=== PATIENT | female | born 1940 | race Asian ===

== ENCOUNTER 2017-09-02 13:06 | Inpatient (IN) | payer MEDICARE, OTHER ==
[~2017-09-02] VITALS: Ht 149.9 cm; Wt 49.9 kg
[2017-09-02] MEDS ORDERED: EVISTA60 MG ORAL (13:09)
[2017-09-02] MEDS ORDERED: ZOCOR20 MG ORAL (13:09)
[2017-09-02] MEDS ORDERED: HYZAAR 50-12.51 EACH ORAL (13:09)
[2017-09-02] MEDS ORDERED: XANAX0.25 MG ORAL (13:09)
[2017-09-02] MEDS ORDERED: CYMBALTA60 MG ORAL (13:09)
[2017-09-02] MEDS ORDERED: Sodium Chloride 500ML 500 ML IVPB ONE (13:15)
[2017-09-02 13:54] LABS: BASOPHILS % (AUTO) 0.8 % (0.0-2.0); EOSINOPHILS % (AUTO) 0.9 % (0.0-3.0); HEMATOCRIT 32.2 % (37.0-47.0); HEMOGLOBIN 10.9 G/DL (12.0-16.0); LYMPHOCYTES % (AUTO) 18.5 % (20.0-45.0); MEAN CORPUSCULAR VOLUME 99 FL (80-99); MONOCYTES % (AUTO) 5.7 % (1.0-10.0); PLATELET COUNT 231 K/UL (150-450); RED BLOOD COUNT 3.27 M/UL (4.20-5.40); RED CELL DISTRIBUTION WIDTH 10.9 % (11.6-14.8); WHITE BLOOD COUNT 9.7 K/UL (4.8-10.8)
[2017-09-02 14:33] VITALS: BP 119/60
[2017-09-02 14:38] LABS: ALANINE AMINOTRANSFERASE 14 U/L (12-78); ALBUMIN 2.7 G/DL (3.4-5.0); ALBUMIN/GLOBULIN RATIO 0.9 (1.0-2.7); ALKALINE PHOSPHATASE 28 U/L (46-116); ANION GAP 8 mmol/L (5-15); ASPARTATE AMINO TRANSFERASE 16 U/L (15-37); BILIRUBIN,TOTAL 0.1 MG/DL (0.2-1.0); BLOOD UREA NITROGEN 20 mg/dL (7-18); CALCIUM 7.4 MG/DL (8.5-10.1); CARBON DIOXIDE 24 MMOL/L (21-32); CHLORIDE 109 MMOL/L (98-107); CREATININE 0.9 MG/DL (0.55-1.30); SODIUM 141 MMOL/L (136-145)
[2017-09-02 14:47] LABS: CKMB 1.3 NG/ML (0.0-3.6); CREATINE KINASE 46 U/L (26-308)
--- NOTE | 2017-09-02 15:42 | Emergency Room Report ---
History of Present Illness General Chief Complaint: Dizziness Source: Patient, Medical Record Present Illness HPI The patient is 77-year-old female brought in by EMS after increased dizziness. Patient had been seen at a physician's office. Patient was noted to have become diaphoretic. Patient reported had not been vomiting or having any diarrhea. She prior history of digoxin use as well as diabetes. The patient takes at multiple medications for blood pressure as well as heart condition. The patient been given IV fluids by EMS with improvement in her blood pressure. Patient continued to be somewhat orthostatic after IV fluids Allergies: Coded Allergies: No Known Allergies (Unverified , 09/02/17) Patient History Past Medical History: see triage record Reviewed Nursing Documentation: PMH: Agreed, PSxH: Agreed Nursing Documentation-PMH Past Medical History: No History, Except For Hx Hypertension: Yes - high cholesterol Hx Diabetes: Yes History Of Psychiatric Problem: Yes - Anxiety, depression Review of Systems All Other Systems: negative except mentioned in HPI Physical Exam Vital Signs Date Time Temp Pulse Resp B/P (MAP) Pulse Ox O2 Delivery O2 Flow Rate FiO2 09/02/17 12:53 96.3 88 16 153/77 99 Room Air Sp02 EP Interpretation: reviewed, normal General Appearance: normal inspection, well appearing, no apparent distress, alert Head: atraumatic ENT: normal ENT inspection, hearing grossly normal, normal voice Neck: normal inspection, full range of motion, supple, no bony tend Respiratory: normal inspection, lungs clear, normal breath sounds, no respiratory distress, no retraction, no wheezing Cardiovascular #1: regular rate, rhythm, no edema Gastrointestinal: normal inspection, normal bowel sounds, non tender, soft, no guarding, no hernia Genitourinary: no CVA tenderness Musculoskeletal: normal inspection, normal range of motion, decreased range of motion Neurologic: normal inspection, alert, responsive, speech normal Psychiatric: normal inspection, judgement/insight normal, mood/affect normal Skin: normal inspection, normal color, no rash Medical Decision Making Diagnostic Impression: Primary Impression: Hypotension Additional Impressions: Generalized weakness Thoracic compression fracture Renal cyst ER Course Patient presented for generalized weakness. Differential diagnosis included was not limited to anemia, urinary tract infection, electrolyte abnormality, hypothyroidism, myocardial infarction, myasthenia gravis, dehydration, among others. Because of complexity of patient's case laboratory testing and imaging studies were ordered. I EKG interpreted by me showed normal sinus rhythm with a rate of [address] or T wave changes. Patient noted have a prolonged QT interval and QTC 456 others noted be some digoxin effect. The patient started on IV fluids. She was noted to have some hypokalemia and was given oral potassium. This the CT the abdomen pelvis read by radiology showed severe vertebral collapse at T12 probably old fibroid uterus bilateral renal cysts. Patient was started on IV fluids. The patient has noted to have some episodes which have a release partially explain the medications. The patient will require further monitoring in testing. The patient was discussed with Dr. Evan Downing Labs Test 09/02/17 12:00 09/02/17 13:08 White Blood Count 9.7 K/UL (4.8-10.8) Red Blood Count 3.27 M/UL (4.20-5.40) Hemoglobin 10.9 G/DL (12.0-16.0) Hematocrit 32.2 % (37.0-47.0) Mean Corpuscular Volume 99 FL (80-99) Mean Corpuscular Hemoglobin 33.5 PG (27.0-31.0) Mean Corpuscular Hemoglobin Concent 33.9 G/DL (32.0-36.0) Red Cell Distribution Width 10.9 % (11.6-14.8) Platelet Count 231 K/UL (150-450) Mean Platelet Volume 6.4 FL (6.5-10.1) Neutrophils (%) (Auto) 74.0 % (45.0-75.0) Lymphocytes (%) (Auto) 18.5 % (20.0-45.0) Monocytes (%) (Auto) 5.7 % (1.0-10.0) Eosinophils (%) (Auto) 0.9 % (0.0-3.0) Basophils (%) (Auto) 0.8 % (0.0-2.0) Prothrombin Time 10.4 SEC (9.30-11.50) Prothromb Time International Ratio 1.0 (0.9-1.1) Activated Partial Thromboplast Time 24 SEC (23-33) Sodium Level 141 MMOL/L (136-145) Potassium Level 3.0 MMOL/L (3.5-5.1) Chloride Level 109 MMOL/L (98-107) Carbon Dioxide Level 24 MMOL/L (21-32) Anion Gap 8 mmol/L (5-15) Blood Urea Nitrogen 20 mg/dL (7-18) Creatinine 0.9 MG/DL (0.55-1.30) Estimat Glomerular Filtration Rate mL/min (>60) Glucose Level 164 MG/DL (74-106) Calcium Level 7.4 MG/DL (8.5-10.1) Total Bilirubin 0.1 MG/DL (0.2-1.0) Aspartate Amino Transf (AST/SGOT) 16 U/L (15-37) Alanine Aminotransferase (ALT/SGPT) 14 U/L (12-78) Alkaline Phosphatase 28 U/L (46-116) Total Creatine Kinase 46 U/L (26-308) Creatine Kinase MB 1.3 NG/ML (0.0-3.6) Creatine Kinase MB Relative Index 2.8 Troponin I 0.026 ng/mL (0.000-0.056) Total Protein 5.8 G/DL (6.4-8.2) Albumin 2.7 G/DL (3.4-5.0) Globulin 3.1 g/dL Albumin/Globulin Ratio 0.9 (1.0-2.7) Digoxin Level < 0.2 NG/ML (0.9-2.0) Lactic Acid Level 1.80 mmol/L (0.66-2.22) Last Vital Signs Date Time Temp Pulse Resp B/P (MAP) Pulse Ox O2 Delivery O2 Flow Rate FiO2 09/02/17 14:33 96.3 91 15 119/60 99 Room Air Status: unchanged Disposition: ADMITTED INPATIENT Condition: Serious Referrals: NOT CHOSEN IPA/,REFERRING (PCP) Kamari Potter Sep 02, 2017 15:42
[2017-09-02 16:03] LABS: APPEARANCE,URINE CLEAR; BILIRUBIN, URINE NEGATIVE (NEGATIVE); COLOR,URINE PALE YELLOW; GLUCOSE, URINE (UA) 1+ (NEGATIVE); KETONES,URINE NEGATIVE (NEGATIVE); LEUKOCYTE ESTERASE ,URINE NEGATIVE (NEGATIVE); NITRITE,URINE NEGATIVE (NEGATIVE); PH,URINE 7 (4.5-8.0); PROTEIN,URINE NEGATIVE (NEGATIVE); UROBILINOGEN,URINE NORMAL MG/DL (0.0-1.0)
[2017-09-02 16:19] VITALS: BP 104/80
[2017-09-02 17:28] VITALS: BP 126/71
[2017-09-02] MEDS: D5 1/2NS 1,000 ML IV SCH (18:28)
[2017-09-02 20:00] VITALS: BP 137/75
[2017-09-02] MEDS ORDERED: HydrALAZINE 25mg tab ORAL PRN (20:45)
[2017-09-03] VITALS: BP 142/78
[2017-09-03 04:00] VITALS: BP 135/77
[2017-09-03] MEDS: D5 1/2NS 1,000 ML IV SCH ×2 (04:32→15:42)
[2017-09-03] MEDS: NovoLOG Insulin Flexpen SUBQ SCH ×4 (06:30→20:49)
[2017-09-03 07:09] LABS: EOSINOPHILS % (AUTO) 1.7 % (0.0-3.0); HEMATOCRIT 32.3 % (37.0-47.0); HEMOGLOBIN 10.8 G/DL (12.0-16.0); LYMPHOCYTES % (AUTO) 28.2 % (20.0-45.0); MEAN CORPUSCULAR VOLUME 99 FL (80-99); MONOCYTES % (AUTO) 6.9 % (1.0-10.0); NEUTROPHILS % (AUTO) 62.2 % (45.0-75.0); PLATELET COUNT 234 K/UL (150-450); RED BLOOD COUNT 3.28 M/UL (4.20-5.40); RED CELL DISTRIBUTION WIDTH 10.8 % (11.6-14.8); WHITE BLOOD COUNT 7.7 K/UL (4.8-10.8)
[2017-09-03 07:47] LABS: ANION GAP 7 mmol/L (5-15); BLOOD UREA NITROGEN 18 mg/dL (7-18); CALCIUM 8.9 MG/DL (8.5-10.1); CARBON DIOXIDE 26 MMOL/L (21-32); CHLORIDE 105 MMOL/L (98-107); CREATININE 0.9 MG/DL (0.55-1.30); POTASSIUM 3.8 MMOL/L (3.5-5.1); SODIUM 138 MMOL/L (136-145)
[2017-09-03 08:56] VITALS: BP 151/88
[2017-09-03] MEDS ORDERED: D5 1/2NS 1000ml IV ONE (09:17)
--- NOTE | 2017-09-03 11:08 | Diagnostic Imaging Report ---
Indication: Abdominal pain Technique: CT scan of the abdomen and pelvis was performed from the diaphragms to the symphysis pubis with intravenous contrast material only per specific request of the ordering physician.. 5 mm sections were generated. Axial, coronal, and sagittal images are presented. Dose: Total Dose Length Product - DLP [address] Dose Index - CTDIvol(s) 12.17 mGy. Comparison: None Findings: The liver is normal in size. There is a less than 1 cm low-density lesion in the left lobe of the liver. The gallbladder is normal. The spleen is unremarkable. The pancreas is normal. The stomach is mildly distended with food. Adrenal glands are normal. There is a sharply circumscribed low density mass in the right kidney consistent with a cyst. Another one is noted in the left kidney. Both kidneys appear malrotated. Calcification is noted in the aorta. Retroperitoneum is free of adenopathy. The appendix is small. There is no appendicitis. The bowel is unremarkable. There is a high density mass in the fundus of the uterus measuring 4.7 cm. The uterus is otherwise normal. The bladder is unremarkable. There is a compression fracture of T12. No soft tissue swelling is noted around this. Degenerative changes are noted in the spine. Impression: Compression fracture T12, likely old. There is no soft tissue swelling. Small low-density lesion in the left lobe of the liver. This is too small to characterize but likely represents a small cyst. Ultrasound may be helpful if clinically warranted. 4.7 cm fibroid in the fundus of the uterus. Degenerative change of the spine. No definite evidence of appendicitis. Atherosclerotic change. This agrees with preliminary reading. The CT scanner at [facility] [place] is accredited by the [employer] and the scans are performed using protocols designed to limit radiation exposure to as low as reasonably achievable to attain images of sufficient resolution adequate for diagnostic evaluation.
--- NOTE | 2017-09-03 11:09 | Diagnostic Imaging Report ---
Indication: Shortness of breath Technique: CHEST 1 VIEW Comparison:None Findings: The heart is normal in size. There is calcification of the aorta. The lungs are clear. No pleural fluid. Scoliosis with degenerative changes noted in the thoracic spine. Impression: Scoliosis with degenerative change in the thoracic spine. No acute abnormality.
--- NOTE | 2017-09-03 11:38 | History and Physical ---
History of Present Illness General Date patient seen: Sep 03, 2017 Reason for Hospitalization: Dizziness Present Illness HPI 77 year old female w/ PMHx DM, HTN, HLD and depression who BIBA to the ED w/ near syncope. Per EMS staff pt was hypotensive and diaphoretic on arrival. In the ED pt was tachycardic and hypotensive with positive orthostatic vital sings. She received IVF bolus w/ improvement in BP. Overnight pt was kept on mIVF and encouraged to drink fluids. Today she was able to ambulate w/ PT, however she did c/o some mild dizziness during exertion. Allergies: Coded Allergies: No Known Allergies (Unverified , 09/02/17) Medication History Scheduled Duloxetine Hcl* (Cymbalta*), 60 MG ORAL DAILY, (Reported) Losartan/Hydrochlorothiazide 50-12.5 Tablet* (Hyzaar 50-12.5 Tablet*), 1 TAB ORAL DAILY, (Reported) Raloxifene Hcl* (Evista*), 60 MG ORAL DAILY, (Reported) Simvastatin (Zocor), 20 MG ORAL BEDTIME, (Reported) Scheduled PRN Alprazolam* (Xanax*), 0.25 MG ORAL TID PRN for PRN Agitation/Anxiety, (Reported) Patient History Healthcare decision maker N Resuscitation status Full Code Advanced Directive on File Patient History Narrative DM2 HTN HLD Depression Review of Systems ROS Narrative CONSTITUTIONAL: No weight loss, fever, chills, weakness or fatigue. HEENT: Eyes: No visual loss, blurred vision, double vision or yellow sclerae. Ears, Nose, Throat: No hearing loss, sneezing, congestion, runny nose or sore throat. SKIN: No rash or itching. CARDIOVASCULAR: No chest pain, chest pressure or chest discomfort. No palpitations or edema. RESPIRATORY: No shortness of breath, cough or sputum. GASTROINTESTINAL: No anorexia, nausea, vomiting or diarrhea. No abdominal pain or blood. NEUROLOGICAL: No headache. + dizziness, near-syncope. No paralysis, ataxia, numbness or tingling in the extremities. No change in bowel or bladder control. MUSCULOSKELETAL: No muscle, back pain. No joint pain or stiffness. HEMATOLOGIC: No anemia, bleeding or bruising. LYMPHATICS: No enlarged nodes. No history of splenectomy. PSYCHIATRIC: No history of depression or anxiety. ENDOCRINOLOGIC: No reports of sweating, cold or heat intolerance. No polyuria or polydipsia. ALLERGIES: No history of asthma, hives, eczema or rhinitis. Physical Exam Physical Exam Narrative General: Well appearing, in no acute distress, cooperative and alert Head: Normocephalic, without obvious abnormality, atraumatic. Eyes: Conjunctivae/corneas clear. PERRL, EOMs intact. No scleral icterus present Throat: Lips, mucosa, and tongue normal. Teeth and gums normal. Neck: No carotid bruits bilaterally, no jugular venous distention, no hepatojugular reflux, supple, symmetrical, trachea midline Lungs: Clear to auscultation bilaterally. Chest wall: No tenderness or deformity. Heart: Regular rate and rhythm, normal S1 and S2, No murmurs/gallops/rubs Abdomen: Soft, non-tender, non-distended, normoactive bowel sounds. No masses, or hepatosplenomegaly. Extremities: No clubbing, cyanosis, edema Pulses: 2+ and symmetric all extremities. Skin: No rashes, excoriations Neurologic: CNII-XII intact. Normal strength and sensation throughout. Last 24 Hour Vital Signs Date Time Temp Pulse Resp B/P (MAP) Pulse Ox O2 Delivery O2 Flow Rate FiO2 09/03/17 08:56 97.0 86 18 151/88 96 Room Air 09/03/17 04:00 76 09/03/17 04:00 97.5 74 18 135/77 96 Room Air 09/03/17 00:00 97.5 75 16 142/78 96 Room Air 09/03/17 00:00 82 09/02/17 20:00 80 09/02/17 20:00 97.5 83 16 137/75 96 Room Air 09/02/17 17:28 97.5 91 18 126/71 96 Room Air 09/02/17 16:19 96.3 90 19 104/80 99 Room Air 09/02/17 14:33 96.3 91 15 119/60 99 Room Air 09/02/17 12:53 96.3 88 16 153/77 99 Room Air Laboratory Tests Test 09/02/17 12:00 09/02/17 13:08 09/02/17 15:30 09/03/17 05:15 White Blood Count 9.7 K/UL (4.8-10.8) 7.7 K/UL (4.8-10.8) Red Blood Count 3.27 M/UL (4.20-5.40) L 3.28 M/UL (4.20-5.40) L Hemoglobin 10.9 G/DL (12.0-16.0) L 10.8 G/DL (12.0-16.0) L Hematocrit 32.2 % (37.0-47.0) L 32.3 % (37.0-47.0) L Mean Corpuscular Volume 99 FL (80-99) 99 FL (80-99) Mean Corpuscular Hemoglobin 33.5 PG (27.0-31.0) H 32.8 PG (27.0-31.0) H Mean Corpuscular Hemoglobin Concent 33.9 G/DL (32.0-36.0) 33.3 G/DL (32.0-36.0) Red Cell Distribution Width 10.9 % (11.6-14.8) L 10.8 % (11.6-14.8) L Platelet Count 231 K/UL (150-450) 234 K/UL (150-450) Mean Platelet Volume 6.4 FL (6.5-10.1) L 7.1 FL (6.5-10.1) Neutrophils (%) (Auto) 74.0 % (45.0-75.0) 62.2 % (45.0-75.0) Lymphocytes (%) (Auto) 18.5 % (20.0-45.0) L 28.2 % (20.0-45.0) Monocytes (%) (Auto) 5.7 % (1.0-10.0) 6.9 % (1.0-10.0) Eosinophils (%) (Auto) 0.9 % (0.0-3.0) 1.7 % (0.0-3.0) Basophils (%) (Auto) 0.8 % (0.0-2.0) 1.0 % (0.0-2.0) Prothrombin Time 10.4 SEC (9.30-11.50) Prothromb Time International Ratio 1.0 (0.9-1.1) Activated Partial Thromboplast Time 24 SEC (23-33) Sodium Level 141 MMOL/L (136-145) 138 MMOL/L (136-145) Potassium Level 3.0 MMOL/L (3.5-5.1) L 3.8 MMOL/L (3.5-5.1) Chloride Level 109 MMOL/L (98-107) H 105 MMOL/L (98-107) Carbon Dioxide Level 24 MMOL/L (21-32) 26 MMOL/L (21-32) Anion Gap 8 mmol/L (5-15) 7 mmol/L (5-15) Blood Urea Nitrogen 20 mg/dL (7-18) H 18 mg/dL (7-18) Creatinine 0.9 MG/DL (0.55-1.30) 0.9 MG/DL (0.55-1.30) Estimat Glomerular Filtration Rate mL/min (>60) mL/min (>60) Glucose Level 164 MG/DL (74-106) H 142 MG/DL (74-106) H Calcium Level 7.4 MG/DL (8.5-10.1) L 8.9 MG/DL (8.5-10.1) # Total Bilirubin 0.1 MG/DL (0.2-1.0) L Aspartate Amino Transf (AST/SGOT) 16 U/L (15-37) Alanine Aminotransferase (ALT/SGPT) 14 U/L (12-78) Alkaline Phosphatase 28 U/L (46-116) L Total Creatine Kinase 46 U/L (26-308) Creatine Kinase MB 1.3 NG/ML (0.0-3.6) Creatine Kinase MB Relative Index 2.8 Troponin I 0.026 ng/mL (0.000-0.056) Total Protein 5.8 G/DL (6.4-8.2) L Albumin 2.7 G/DL (3.4-5.0) L Globulin 3.1 g/dL Albumin/Globulin Ratio 0.9 (1.0-2.7) L Digoxin Level < 0.2 NG/ML (0.9-2.0) L Lactic Acid Level 1.80 mmol/L (0.66-2.22) Urine Color Pale yellow Urine Appearance Clear Urine pH 7 (4.5-8.0) Urine Specific [place] 1.005 (1.005-1.035) Urine Protein Negative (NEGATIVE) Urine Glucose (UA) 1+ (NEGATIVE) H Urine Ketones Negative (NEGATIVE) Urine Occult Blood Negative (NEGATIVE) Urine Nitrite Negative (NEGATIVE) Urine Bilirubin Negative (NEGATIVE) Urine Urobilinogen Normal MG/DL (0.0-1.0) Urine Leukocyte Esterase Negative (NEGATIVE) Height (Feet): 4 Height (Inches): 11.00 Weight (Pounds): 110 Medications Current Medications Medications (Trade) Dose Ordered Sig/[place] Route PRN Reason Start Time Stop Time Status Last Admin Dose Admin Dextrose (Dextrose 50%) STAT PRN IV Hypoglycemia 09/02/17 23:30 10/02/17 23:29 Dextrose/Sodium Chloride 1,000 ml @ 100 mls/hr Q10H IV 09/02/17 18:00 10/02/17 17:59 09/03/17 04:32 Hydralazine HCl (Apresoline) 25 mg Q6H PRN ORAL sbp > 160 09/02/17 20:45 10/02/17 20:44 Insulin Aspart (NovoLOG) BEFORE MEALS AND HS SUBQ 09/03/17 06:30 10/03/17 06:29 Assessment/Plan Status: progressing Assessment/Plan #Near Syncope #Orthostatic hypotension #Hypokalemia #Anemia, normocytic #DM2 #HTN #HLD #Depression - admit to in pt - cardiology consult - mIVF - encourage po intake - repeat chem, CBC - replete kcl as needed - PT/OT - hold home meds - insulin sliding scale - DM diet - Dipso planning DVT PPx: SCDs FULL CODE Dipso: Home Expected LOS: 1-2 days Time of note may not reflect time of encounter I spent 70 min on this case and 37 min was dedicated to counseling and care coordination. Evan Downing MD Sep 03, 2017 11:38
[2017-09-03 11:55] VITALS: BP 129/75
[2017-09-03 15:48] VITALS: BP 136/85
--- NOTE | 2017-09-03 17:23 | Cardiac Electrophysiology PN ---
Subjective Subjective Cardiology consult dictated. [id number] Objective Last 24 Hour Vital Signs Date Time Temp Pulse Resp B/P (MAP) Pulse Ox O2 Delivery O2 Flow Rate FiO2 09/03/17 15:48 97.5 80 18 136/85 97 Room Air 09/03/17 11:55 97.2 80 18 129/75 97 Room Air 09/03/17 08:56 97.0 86 18 151/88 96 Room Air 09/03/17 08:00 80 09/03/17 04:00 76 09/03/17 04:00 97.5 74 18 135/77 96 Room Air 09/03/17 00:00 97.5 75 16 142/78 96 Room Air 09/03/17 00:00 82 09/02/17 20:00 80 09/02/17 20:00 97.5 83 16 137/75 96 Room Air 09/02/17 17:28 97.5 91 18 126/71 96 Room Air Intake and Output 09/03/17 09/04/17 19:00 07:00 Intake Total 940 ml Balance 940 ml Intake Oral 240 ml IV Total 700 ml # Voids 2 Laboratory Tests Test 09/03/17 05:15 White Blood Count 7.7 K/UL (4.8-10.8) Red Blood Count 3.28 M/UL (4.20-5.40) L Hemoglobin 10.8 G/DL (12.0-16.0) L Hematocrit 32.3 % (37.0-47.0) L Mean Corpuscular Volume 99 FL (80-99) Mean Corpuscular Hemoglobin 32.8 PG (27.0-31.0) H Mean Corpuscular Hemoglobin Concent 33.3 G/DL (32.0-36.0) Red Cell Distribution Width 10.8 % (11.6-14.8) L Platelet Count 234 K/UL (150-450) Mean Platelet Volume 7.1 FL (6.5-10.1) Neutrophils (%) (Auto) 62.2 % (45.0-75.0) Lymphocytes (%) (Auto) 28.2 % (20.0-45.0) Monocytes (%) (Auto) 6.9 % (1.0-10.0) Eosinophils (%) (Auto) 1.7 % (0.0-3.0) Basophils (%) (Auto) 1.0 % (0.0-2.0) Sodium Level 138 MMOL/L (136-145) Potassium Level 3.8 MMOL/L (3.5-5.1) Chloride Level 105 MMOL/L (98-107) Carbon Dioxide Level 26 MMOL/L (21-32) Anion Gap 7 mmol/L (5-15) Blood Urea Nitrogen 18 mg/dL (7-18) Creatinine 0.9 MG/DL (0.55-1.30) Estimat Glomerular Filtration Rate mL/min (>60) Glucose Level 142 MG/DL (74-106) H Calcium Level 8.9 MG/DL (8.5-10.1) ANDRIA PEACOCK Sep 03, 2017 17:23
[2017-09-03 20:30] VITALS: BP 110/72
[2017-09-04] VITALS (7 sets, daily range): BP systolic 130–161; BP diastolic 64–89
--- NOTE | 2017-09-04 | Consultation ---
DATE OF CONSULTATION: 09/03/2017 CARDIOLOGY CONSULTATION CONSULTING PHYSICIAN: Jonny Mallory M.D. REFERRING PHYSICIAN: Capri Abreu M.D. REASON FOR CONSULTATION: Management of hypertension, weakness, and presyncope. HISTORY OF PRESENT ILLNESS: The patient is a 77-year-old lady with history of hypertension, diabetes, and hyperlipidemia as well as depression, was brought in by ambulance to the emergency room for near syncopal episodes. Per the emergency room staff, the patient was hypotensive and diaphoretic and on arrival was tachycardic and was orthostatic. The patient received IV fluids that improved her blood pressure. The patient was admitted and Cardiology consultation was obtained for further evaluation and management. Of note, the patient's EKG shows sinus rhythm with first-degree AV block. PAST MEDICAL HISTORY: As mentioned above. MEDICATIONS: Include losartan, hydrochlorothiazide, Zocor, Evista, and Cymbalta. SOCIAL HISTORY: Denies smoking or drinking alcohol. FAMILY HISTORY: Noncontributory. REVIEW OF SYSTEMS: Review of systems was negative other than what was mentioned in the history of present illness. PHYSICAL EXAMINATION: VITAL SIGNS: Blood pressure is 136/85, pulse 80, respirations 18, and temperature 97.5. HEAD AND NECK: Showed no JVD. LUNGS: Clear. CARDIOVASCULAR: Shows regular S1 and S2 with no gallop or murmur. ABDOMEN: Soft. EXTREMITIES: No pitting edema. LABORATORY AND DIAGNOSTIC DATA: Her EKG shows sinus rhythm with first-degree AV block at a rate of 80. White count is 7.7, hemoglobin 10.8, hematocrit 32.3, and platelets of 234,000. Sodium 138, potassium 3.8, BUN 18, creatinine of 0.9, and glucose of 142. First troponin is negative. Digoxin level is less than 0.2. INR is 1. Urinalysis is negative. ASSESSMENT AND PLAN: 1. Weakness. First troponin is negative. We will completely rule out myocardial infarction protocol. We will get an echocardiogram to evaluate for ejection fraction and wall motion abnormality, and discontinue the patient's antihypertensives. 2. Hypertension. Antihypertensives were discontinued. The patient is on normal saline. 3. Hyperlipidemia. The patient was on Zocor as an outpatient. 4. Depression, on Cymbalta. Thank you very much, Dr. Abreu, for allowing me to participate in the care of this patient. Please do not hesitate to contact me if you have any questions regarding my evaluation. Jonny Mallory M.D. DR: DANK JOB#: [id number] CC:
[2017-09-04] MEDS: D5 1/2NS 1,000 ML IV SCH ×2 (00:33→10:00)
[2017-09-04] MEDS: NovoLOG Insulin Flexpen SUBQ SCH ×3 (06:26→17:23)
[2017-09-04 08:04] LABS: BASOPHILS % (AUTO) 0.5 % (0.0-2.0); EOSINOPHILS % (AUTO) 2.2 % (0.0-3.0); HEMATOCRIT 35.2 % (37.0-47.0); HEMOGLOBIN 11.6 G/DL (12.0-16.0); MEAN CORPUSCULAR VOLUME 98 FL (80-99); NEUTROPHILS % (AUTO) 64.3 % (45.0-75.0); PLATELET COUNT 235 K/UL (150-450); RED BLOOD COUNT 3.58 M/UL (4.20-5.40); RED CELL DISTRIBUTION WIDTH 10.8 % (11.6-14.8); WHITE BLOOD COUNT 7.5 K/UL (4.8-10.8)
[2017-09-04 08:41] LABS: ANION GAP 8 mmol/L (5-15); BLOOD UREA NITROGEN 17 mg/dL (7-18); CALCIUM 8.6 MG/DL (8.5-10.1); CARBON DIOXIDE 26 MMOL/L (21-32); CHLORIDE 104 MMOL/L (98-107); CREATININE 0.9 MG/DL (0.55-1.30); POTASSIUM 3.5 MMOL/L (3.5-5.1); SODIUM 138 MMOL/L (136-145)
[2017-09-04] MEDS ORDERED: D5 1/2NS 1000ml IV ONE (10:37)
--- NOTE | 2017-09-04 14:27 | Cardiac Electrophysiology PN ---
Assessment/Plan Assessment/Plan 1. Weakness, presyncope. Ruled out for myocardial infarction. Echocardiogram showed Nl EF.Carotid doppler pending 2. Hypertension. Start Norvasc 5 mg daily 3. Hyperlipidemia. Resume Zocor 10 mg daily. 4. Depression, on Cymbalta. SAM RN Subjective Subjective Feeling better. No syncope or presyncope. No arrhythmias. Objective Last 24 Hour Vital Signs Date Time Temp Pulse Resp B/P (MAP) Pulse Ox O2 Delivery O2 Flow Rate FiO2 09/04/17 12:00 80 09/04/17 11:30 96.3 91 18 135/84 96 Room Air 09/04/17 08:24 84 18 152/84 96 Room Air 09/04/17 08:13 97.0 83 19 161/83 Room Air 09/04/17 08:00 96 09/04/17 04:15 74 09/04/17 04:00 97.3 74 18 130/89 98 Room Air 09/04/17 00:45 98.1 74 17 157/85 95 Room Air 09/04/17 00:00 74 09/03/17 20:34 78 09/03/17 20:30 97.5 82 18 110/72 96 Room Air 09/03/17 20:10 87 09/03/17 20:05 147 09/03/17 20:00 78 09/03/17 16:00 84 09/03/17 15:48 97.5 80 18 136/85 97 Room Air Intake and Output 09/04/17 09/05/17 19:00 07:00 Intake Total 240 ml Balance 240 ml Intake Oral 240 ml # Voids 1 Laboratory Tests Test 09/04/17 06:45 White Blood Count 7.5 K/UL (4.8-10.8) Red Blood Count 3.58 M/UL (4.20-5.40) L Hemoglobin 11.6 G/DL (12.0-16.0) L Hematocrit 35.2 % (37.0-47.0) L Mean Corpuscular Volume 98 FL (80-99) Mean Corpuscular Hemoglobin 32.4 PG (27.0-31.0) H Mean Corpuscular Hemoglobin Concent 33.0 G/DL (32.0-36.0) Red Cell Distribution Width 10.8 % (11.6-14.8) L Platelet Count 235 K/UL (150-450) Mean Platelet Volume 6.5 FL (6.5-10.1) Neutrophils (%) (Auto) 64.3 % (45.0-75.0) Lymphocytes (%) (Auto) 26.0 % (20.0-45.0) Monocytes (%) (Auto) 7.0 % (1.0-10.0) Eosinophils (%) (Auto) 2.2 % (0.0-3.0) Basophils (%) (Auto) 0.5 % (0.0-2.0) Sodium Level 138 MMOL/L (136-145) Potassium Level 3.5 MMOL/L (3.5-5.1) Chloride Level 104 MMOL/L (98-107) Carbon Dioxide Level 26 MMOL/L (21-32) Anion Gap 8 mmol/L (5-15) Blood Urea Nitrogen 17 mg/dL (7-18) Creatinine 0.9 MG/DL (0.55-1.30) Estimat Glomerular Filtration Rate mL/min (>60) Glucose Level 154 MG/DL (74-106) H Calcium Level 8.6 MG/DL (8.5-10.1) Troponin I 0.026 ng/mL (0.000-0.056) Pro-B-Type Natriuretic Peptide 171 pg/mL (0-125) H Microbiology Date/Time Source Procedure Growth Status 09/02/17 12:00 Blood Blood Culture - Preliminary NO GROWTH AFTER 24 HOURS Resulted 09/02/17 12:00 Blood Blood Culture - Preliminary NO GROWTH AFTER 24 HOURS Resulted Objective HEAD AND NECK: Showed no JVD. LUNGS: Clear. CARDIOVASCULAR: Regular S1 and S2 with no gallop or murmur. ABDOMEN: Soft. EXTREMITIES: No pitting edema. ANDRIA MILNER Sep 04, 2017 14:27
[2017-09-04] MEDS ORDERED: NORVASC5 MG ORAL (16:27)
--- NOTE | 2017-09-04 19:41 | Cardiology Report ---
APPROVED REPORT EXAM: Two-dimensional and M-mode echocardiogram with Doppler and color Doppler. INDICATION Syncope M-Mode DIMENSIONS IVSd1.0 (0.7-1.1cm)Left Atrium (MM)3.1 (1.6-4.0cm) LVDd3.8 (3.5-5.6cm)Aortic Root2.6 (2.0-3.7cm) PWd1.1 (0.7-1.1cm)Aortic Cusp Exc.1.4 (1.5-2.0cm) LVDs2.2 (2.5-4.0cm) PWs2.3 cm Technically difficult study due to poor acoustical windows. Normal left ventricular chamber size, systolic function and wall motion to extent visualized. Left ventricular ejection fraction estimated to be 70 %. Study quality precludes accurate assessment of regional wall motion. Mild LV hypertrophy with basal septum prominence by 2D. No evidence of pericardial effusion. All other cardiac chamber sizes are within normal limits. . Pulmonic valve not well visualized. Normal tricuspid valve structure. Thickened mitral valve leaflets with normal excursion . Mitral annuals and aortic root calcification.. IVC at normal size withphysiologic collapse. A color flow and spectral Doppler study was performed and revealed: Trace mitral regurgitation . Mitral diastolic velocities suggest reduced left ventricular relaxation c/w mild LV diastolic dysfunction (Grade I ). Trace tricuspid regurgitation. Tricuspid systolic velocities suggests peak right ventricular systolic pressure of 20 mmHg
--- NOTE | 2017-09-04 20:22 | Cardiology Report ---
APPROVED REPORT EKG Measurement Heart [id number] [place] [id number] Sinus rhythm with 1st degree AV block Otherwise normal ECG
--- NOTE | 2017-09-04 20:22 | Cardiology Report ---
APPROVED REPORT EKG Measurement Heart [id number] Sinus rhythm with 1st degree AV block Otherwise normal ECG
--- NOTE | 2017-09-04 20:22 | Cardiology Report ---
APPROVED REPORT EKG Measurement Heart [id number] MD [id number] Sinus rhythm with 1st degree AV block Otherwise normal ECG
--- NOTE | 2017-09-05 07:02 | Discharge Summary ---
Discharge Summary Hospital Course Date of Admission Sep 02, 2017 at 15:00 Date of Discharge Sep 04, 2017 at 18:20 Admitting Diagnosis generalized weakness, near syncope Reason for Hospitalization: Near syncope HPI 77 year old female w/ PMHx DM, HTN, HLD and depression who BIBA to the ED w/ near syncope. Per EMS staff pt was hypotensive and diaphoretic on arrival. In the ED pt was tachycardic and hypotensive with positive orthostatic vital sign. She received IVF bolus w/ improvement in BP. Consultations Cardiology Hospital Course Pt was admitted to tele. She was treated with IVFs with improvement in orthostatic vitals. Her losartan/hctz were held. Pt was seen by cardiology. TTE showed normal EF and carotid duplex was unremarkable. Cardiolgoy recommended starting norvasc 5mg daily and holding losartan/hctz for now. Pt was seen by PT and cleared for discharge home. Discharge Medications New Medications: Amlodipine Besylate (Norvasc) 5 Mg Tablet 5 MG ORAL DAILY for 30 Days, #30 TAB 1 Refill Continued Medications: Duloxetine Hcl* (Cymbalta*) 60 Mg Capsule.dr 60 MG ORAL DAILY, CAP Raloxifene Hcl* (Evista*) 60 Mg Tablet 60 MG ORAL DAILY, TAB Simvastatin (Zocor) 20 Mg Tablet 20 MG ORAL BEDTIME, TAB Discontinued Medications: Alprazolam* (Xanax*) 0.25 Mg Tablet 0.25 MG ORAL TID PRN for PRN Agitation/Anxiety, #30 TAB 0 Refills Losartan/Hydrochlorothiazide 50-12.5 Tablet* (Hyzaar 50-12.5 Tablet*) 1 Each Tablet 1 TAB ORAL DAILY, TAB Discharge Condition Upon Discharge: stable Discharge Disposition Patient was discharged to Home with home health Discharge Diagnoses: (1) Near syncope (2) Orthostatic hypotension (3) Prediabetes (4) HTN (hypertension) (5) HLD (hyperlipidemia) Discharge Instructions Discharge Instructions Follow up with: f/u with PCP in 1 week Call MD/Return to Hospital if: fevers, chest pain, SOB, n/v Services Upon Discharge: home health services Diet: diabetic calorie control, cardiac 2 GM Na, low fat Activity: resume normal activities Corazon Millard M.D. Sep 05, 2017 07:02
--- NOTE | 2017-09-08 14:16 | Diagnostic Imaging Report ---
APPROVED REPORT CPT Code: 32499 Vascular Symptoms Syncope Doppler Spectral Velocity Analysis RightLeft dICA83/37 cm/qvCWC779/46 cm/s mICA79/30 cm/smICA74/30 cm/s pICA75/27 cm/spICA56/23 cm/s ECA82/9 cm/sECA58/9 cm/s dCCA48/16 cm/sdCCA57/19 cm/s mCCA53/17 cm/smCCA50/17 cm/s pCCA56/12 cm/spCCA57/17 cm/s Vert.42/14 cm/sVert.66/22 cm/s Right ICA/CCA ratio1.5Left ICA/CCA ratio2.0 arteries. The Doppler spectral flow analysis is within normal limits throughout the internal and external carotid arteries. VERTEBRALS - Imaging reveals both vertebral arteries to be patent, without evidence of stenosis or steal. arteries. The Doppler spectral flow analysis indicates minimal (10-20%) in the common carotid, mild to moderate (50% - 60%) in the distal internal carotid , and minimal (30%) in the external carotid arteries. VERTEBRALS - Imaging reveals both vertebral arteries to be patent, without evidence of stenosis or steal. NOTE: An apparent focal out-pouching in the left CCA vessel wall may be an artifact but aneurysmal etiology cannot be ruled out. Consider CTA or other imaging if clinically indicated.
--- NOTE | 2017-09-08 14:16 | Diagnostic Imaging Report ---
APPROVED REPORT CPT Code: 34550 Vascular Symptoms Syncope Doppler Spectral Velocity Analysis RightLeft dICA83/37 cm/hqBSF143/46 cm/s mICA79/30 cm/smICA74/30 cm/s pICA75/27 cm/spICA56/23 cm/s ECA82/9 cm/sECA58/9 cm/s dCCA48/16 cm/sdCCA57/19 cm/s mCCA53/17 cm/smCCA50/17 cm/s pCCA56/12 cm/spCCA57/17 cm/s Vert.42/14 cm/sVert.66/22 cm/s Right ICA/CCA ratio1.5Left ICA/CCA ratio2.0 arteries. The Doppler spectral flow analysis is within normal limits throughout the internal and external carotid arteries. VERTEBRALS - Imaging reveals both vertebral arteries to be patent, without evidence of stenosis or steal. arteries. The Doppler spectral flow analysis indicates minimal (10-20%) in the common carotid, mild to moderate (50% - 60%) in the distal internal carotid , and minimal (30%) in the external carotid arteries. VERTEBRALS - Imaging reveals both vertebral arteries to be patent, without evidence of stenosis or steal. NOTE: An apparent focal out-pouching in the left CCA vessel wall may be an artifact but aneurysmal etiology cannot be ruled out. Consider CTA or other imaging if clinically indicated.
--- NOTE | 2017-09-08 14:16 | Diagnostic Imaging Report ---
APPROVED REPORT CPT Code: 38097 Vascular Symptoms Syncope Doppler Spectral Velocity Analysis RightLeft dICA83/37 cm/udCFH914/46 cm/s mICA79/30 cm/smICA74/30 cm/s pICA75/27 cm/spICA56/23 cm/s ECA82/9 cm/sECA58/9 cm/s dCCA48/16 cm/sdCCA57/19 cm/s mCCA53/17 cm/smCCA50/17 cm/s pCCA56/12 cm/spCCA57/17 cm/s Vert.42/14 cm/sVert.66/22 cm/s Right ICA/CCA ratio1.5Left ICA/CCA ratio2.0 arteries. The Doppler spectral flow analysis is within normal limits throughout the internal and external carotid arteries. VERTEBRALS - Imaging reveals both vertebral arteries to be patent, without evidence of stenosis or steal. arteries. The Doppler spectral flow analysis indicates minimal (10-20%) in the common carotid, mild to moderate (50% - 60%) in the distal internal carotid , and minimal (30%) in the external carotid arteries. VERTEBRALS - Imaging reveals both vertebral arteries to be patent, without evidence of stenosis or steal. NOTE: An apparent focal out-pouching in the left CCA vessel wall may be an artifact but aneurysmal etiology cannot be ruled out. Consider CTA or other imaging if clinically indicated.
== END 2017-09-04 18:20 | disposition home health service (06) | DRG 312 ==
LOC: EDBD 13:06 → EMR 13:36 → 2E 15:00 → EDBEDREQ 15:51 → 2E 16:40
DX: I95.1 Orthostatic hypotension (principal); D64.9 Anemia, unspecified; I10 Essential (primary) hypertension; F32.9 Major depressive disorder, single episode, unspecified; E87.6 Hypokalemia; E78.5 Hyperlipidemia, unspecified; R73.03 Prediabetes
CPT/HCPCS: 36415; 71010; 74177; 80048; 80053; 80162; 81003; 82550; 82553; 82962; 83036; 83605; 83880; 84484; 85025; 85610; 85730; 86850; 86900; 86901; 87040; 93005; 93306; 93880; 99285; J1815; J8499